=== PATIENT | male | born 1950 | race Caucasian/White ===

== ENCOUNTER → 2021-03-30 | Outpatient (CLI) | payer MEDICARE ==
[~2021-03-30] MED LIST: BENTYL 20MG TAB20 MG PO; GLUCOPHAGE1000 MG PO; GLUCOTROL5 MG PO; IBUPROFEN400 MG PO; LASIX20 MG PO; LEXAPRO20 MG PO; LOPRESSOR50 MG PO; NORCO 7.5-3251 EACH PO; NORVASC10 MG PO; PRAVACHOL40 MG PO; PROTONIX40 MG PO
== END ==
LOC: WCC 09:00
DX: I87.2 Venous insufficiency (chronic) (peripheral) (principal); L97.821 Non-pressure chronic ulcer of other part of left lower leg limited to breakdown of skin; E11.42 Type 2 diabetes mellitus with diabetic polyneuropathy; J44.9 Chronic obstructive pulmonary disease, unspecified; G47.30 Sleep apnea, unspecified; I10 Essential (primary) hypertension; I25.10 Atherosclerotic heart disease of native coronary artery without angina pectoris; L29.9 Pruritus, unspecified; M79.605 Pain in left leg; M79.604 Pain in right leg; E66.01 Morbid (severe) obesity due to excess calories
CPT/HCPCS: G0463

== ENCOUNTER → 2021-04-01 | Outpatient (CLI) | payer MEDICARE | LOC: WCC 15:30 | DX: S81.802A Unspecified open wound, left lower leg, initial encounter (principal); J44.9 Chronic obstructive pulmonary disease, unspecified; G47.30 Sleep apnea, unspecified; E11.36 Type 2 diabetes mellitus with diabetic cataract; I25.2 Old myocardial infarction; I10 Essential (primary) hypertension; Z79.84 Long term (current) use of oral hypoglycemic drugs; Z79.899 Other long term (current) drug therapy | CPT/HCPCS: G0463 ==

== ENCOUNTER → 2021-04-06 | Outpatient (CLI) | payer MEDICARE | LOC: WCC 09:30 | DX: E11.622 Type 2 diabetes mellitus with other skin ulcer (principal); I87.2 Venous insufficiency (chronic) (peripheral); L97.821 Non-pressure chronic ulcer of other part of left lower leg limited to breakdown of skin; E11.42 Type 2 diabetes mellitus with diabetic polyneuropathy; I10 Essential (primary) hypertension; I25.10 Atherosclerotic heart disease of native coronary artery without angina pectoris; J44.9 Chronic obstructive pulmonary disease, unspecified; G47.30 Sleep apnea, unspecified; L29.9 Pruritus, unspecified; M79.604 Pain in right leg; M79.605 Pain in left leg; E66.01 Morbid (severe) obesity due to excess calories; Z68.41 Body mass index [BMI] 40.0-44.9, adult; Z88.8 Allergy status to other drugs, medicaments and biological substances; Z79.84 Long term (current) use of oral hypoglycemic drugs; Z79.891 Long term (current) use of opiate analgesic; Z79.899 Other long term (current) drug therapy ==

== ENCOUNTER → 2021-04-27 | Outpatient (CLI) | payer MEDICARE | LOC: WCC 09:30 | DX: E11.622 Type 2 diabetes mellitus with other skin ulcer (principal); I87.2 Venous insufficiency (chronic) (peripheral); L97.821 Non-pressure chronic ulcer of other part of left lower leg limited to breakdown of skin; J44.9 Chronic obstructive pulmonary disease, unspecified; G47.30 Sleep apnea, unspecified; I10 Essential (primary) hypertension; I25.10 Atherosclerotic heart disease of native coronary artery without angina pectoris; E11.42 Type 2 diabetes mellitus with diabetic polyneuropathy; E66.01 Morbid (severe) obesity due to excess calories; L29.9 Pruritus, unspecified; Z68.41 Body mass index [BMI] 40.0-44.9, adult; Z88.8 Allergy status to other drugs, medicaments and biological substances; Z79.891 Long term (current) use of opiate analgesic; Z79.84 Long term (current) use of oral hypoglycemic drugs; Z79.899 Other long term (current) drug therapy | CPT/HCPCS: 97597 ==

== ENCOUNTER → 2021-05-18 | Outpatient (CLI) | payer MEDICARE | LOC: CT 05-15 09:00 | DX: I70.213 Atherosclerosis of native arteries of extremities with intermittent claudication, bilateral legs (principal); K76.0 Fatty (change of) liver, not elsewhere classified; Q44.7 Other congenital malformations of liver | CPT/HCPCS: 36415; 75635; 82565; Q9967 ==

== ENCOUNTER → 2021-05-19 | Outpatient (CLI) | payer MEDICARE | LOC: WCC 13:00 | DX: E11.622 Type 2 diabetes mellitus with other skin ulcer (principal); I87.2 Venous insufficiency (chronic) (peripheral); L97.919 Non-pressure chronic ulcer of unspecified part of right lower leg with unspecified severity; L97.821 Non-pressure chronic ulcer of other part of left lower leg limited to breakdown of skin; J44.9 Chronic obstructive pulmonary disease, unspecified; G47.30 Sleep apnea, unspecified; I10 Essential (primary) hypertension; I25.10 Atherosclerotic heart disease of native coronary artery without angina pectoris; L29.9 Pruritus, unspecified; E11.42 Type 2 diabetes mellitus with diabetic polyneuropathy; E66.01 Morbid (severe) obesity due to excess calories; Z68.41 Body mass index [BMI] 40.0-44.9, adult; Z88.8 Allergy status to other drugs, medicaments and biological substances; Z79.891 Long term (current) use of opiate analgesic; Z79.84 Long term (current) use of oral hypoglycemic drugs; Z79.899 Other long term (current) drug therapy ==

== ENCOUNTER → 2021-05-27 | Outpatient (CLI) | payer MEDICARE | LOC: WCC 14:49 | DX: I87.2 Venous insufficiency (chronic) (peripheral) (principal); E11.628 Type 2 diabetes mellitus with other skin complications; L97.821 Non-pressure chronic ulcer of other part of left lower leg limited to breakdown of skin; E11.42 Type 2 diabetes mellitus with diabetic polyneuropathy; L29.9 Pruritus, unspecified; I10 Essential (primary) hypertension; I25.10 Atherosclerotic heart disease of native coronary artery without angina pectoris; J44.9 Chronic obstructive pulmonary disease, unspecified; G47.30 Sleep apnea, unspecified; E66.01 Morbid (severe) obesity due to excess calories | CPT/HCPCS: G0463 ==

== ENCOUNTER → 2021-06-18 | Outpatient (CLI) | payer MEDICARE | LOC: WCC 13:44 | DX: E11.622 Type 2 diabetes mellitus with other skin ulcer (principal); I87.2 Venous insufficiency (chronic) (peripheral); L97.912 Non-pressure chronic ulcer of unspecified part of right lower leg with fat layer exposed; E11.42 Type 2 diabetes mellitus with diabetic polyneuropathy; J44.9 Chronic obstructive pulmonary disease, unspecified; G47.30 Sleep apnea, unspecified; I10 Essential (primary) hypertension; I25.10 Atherosclerotic heart disease of native coronary artery without angina pectoris; L29.9 Pruritus, unspecified; E66.01 Morbid (severe) obesity due to excess calories; Z68.41 Body mass index [BMI] 40.0-44.9, adult; Z88.8 Allergy status to other drugs, medicaments and biological substances; Z79.891 Long term (current) use of opiate analgesic; Z79.84 Long term (current) use of oral hypoglycemic drugs; Z79.899 Other long term (current) drug therapy | CPT/HCPCS: 97597 ==

== ENCOUNTER → 2021-06-30 | Outpatient (CLI) | payer MEDICARE | LOC: WCC 13:30 | DX: E11.621 Type 2 diabetes mellitus with foot ulcer (principal); L97.821 Non-pressure chronic ulcer of other part of left lower leg limited to breakdown of skin; I87.2 Venous insufficiency (chronic) (peripheral); G47.30 Sleep apnea, unspecified; I10 Essential (primary) hypertension; E11.42 Type 2 diabetes mellitus with diabetic polyneuropathy; I25.10 Atherosclerotic heart disease of native coronary artery without angina pectoris | CPT/HCPCS: 97597 ==

== ENCOUNTER → 2021-08-13 | Outpatient (CLI) | payer MEDICARE ==
[2021-08-13 10:50] LABS: BUN/CREATININE RATIO 24 (0-10)
== END ==
LOC: LAB 09:29
PROVIDERS: Internal Medicine Cardiovascular Disease
DX: I11.0 Hypertensive heart disease with heart failure (principal); I50.9 Heart failure, unspecified; I48.0 Paroxysmal atrial fibrillation; R00.2 Palpitations; R60.0 Localized edema; R06.02 Shortness of breath; E78.49 Other hyperlipidemia; I25.5 Ischemic cardiomyopathy
CPT/HCPCS: 36415; 80048

== ENCOUNTER 2021-09-20 21:29 | Observation (INO) | payer MEDICARE ==
[~2021-09-20] VITALS: Ht 177.8 cm; Wt 129.0 kg
[2021-09-20 22:12] LABS: HEMOGLOBIN 14.3 gm/dl (14.0-17.5); RED BLOOD COUNT 4.51 M/UL (4.20-5.50); WHITE BLOOD COUNT 10.3 K/UL (4.5-11.0)
[2021-09-21 01:10] LABS: BORDETELLA PARAPERTUSSIS Not Detected (Not Detectd); BORDETELLA PERTUSSIS Not Detected (Not Detectd); CHLAMYDIA PNEUMONIAE Not Detected (Not Detectd); CORONAVIRUS HKU1 Not Detected (Not Detectd); CORONAVIRUS NL63 Not Detected (Not Detectd); CORONAVIRUS OC43 Not Detected (Not Detectd); CORONOAVIRUS 229E Not Detected (Not Detectd); HUMAN METAPNEUMOVIRUS Not Detected (Not Detectd); HUMAN RHINOVIRUS/ENTEROVIRUS Not Detected (Not Detectd); INFLUENZA A Not Detected (Not Detectd); INFLUENZA B Not Detected (Not Detectd); MYCOPLASMA PNEUMONIAE Not Detected (Not Detectd); PARAINFLUENZA VIRUS 1 Not Detected (Not Detectd); PARAINFLUENZA VIRUS 2 Not Detected (Not Detectd); PARAINFLUENZA VIRUS 3 Not Detected (Not Detectd); PARAINFLUENZA VIRUS 4 Not Detected (Not Detectd); RESPIRATORY SYNCYTIAL VIRUS Not Detected (Not Detectd)
[2021-09-21 02:16] LABS: SARS-CoV-2 NOT DETECTED (Not Detectd)
[2021-09-22 05:53] LABS: HEMOGLOBIN 13.3 gm/dl (14.0-17.5); RED BLOOD COUNT 4.31 M/UL (4.20-5.50); WHITE BLOOD COUNT 8.6 K/UL (4.5-11.0)
[2021-09-22 06:25] LABS: BUN/CREATININE RATIO 29 (0-10)
[2021-09-22 08:14] LABS: HBSAG SCREEN Negative (Negative); HEP A AB, IGM Negative (Negative); HEP B CORE AB, IGM Negative (Negative); HEP C VIRUS AB 0.1 (0.0-0.9); HIV SCREEN 4TH GENERATION WRFX Non Reactive (Non Reactive)
[2021-09-22 09:14] LABS: RPR Non Reactive (Non Reactive)
[2021-09-23 06:51] LABS: HEMOGLOBIN 12.9 gm/dl (14.0-17.5); RED BLOOD COUNT 4.19 M/UL (4.20-5.50)
[2021-09-23 09:04] LABS: BUN/CREATININE RATIO 23 (0-10)
[2021-09-23] MEDS ORDERED: KEFLEX CAP 250250 MG PO (10:13)
[2021-09-23 23:07] LABS: CHLAMYDIA TRACHOMATIS, NAA Negative (Negative); NEISSERIA GONORRHOEAE, NAA Negative (Negative)
== END 2021-09-23 12:11 | disposition home or self-care (01) ==
LOC: ER1 21:29 → MED SURG 4 09-21 01:35 → CDU 09-21 01:35 → MED SURG 4 09-21 04:06
PROVIDERS: Emergency Medicine; Internal Medicine; Internal Medicine Infectious Disease; ADMIT Internal Medicine
DX: R50.9 Fever, unspecified (principal); I13.10 Hypertensive heart and chronic kidney disease without heart failure, with stage 1 through stage 4 chronic kidney disease, or unspecified chronic kidney disease; E11.22 Type 2 diabetes mellitus with diabetic chronic kidney disease; N18.9 Chronic kidney disease, unspecified; N17.9 Acute kidney failure, unspecified; G93.41 Metabolic encephalopathy; L03.116 Cellulitis of left lower limb; L03.115 Cellulitis of right lower limb; I35.0 Nonrheumatic aortic (valve) stenosis; I25.10 Atherosclerotic heart disease of native coronary artery without angina pectoris; E66.01 Morbid (severe) obesity due to excess calories; F41.9 Anxiety disorder, unspecified; F32.A Depression, unspecified; E78.5 Hyperlipidemia, unspecified; G89.29 Other chronic pain; R74.01 Elevation of levels of liver transaminase levels; F11.90 Opioid use, unspecified, uncomplicated; I25.2 Old myocardial infarction; K21.9 Gastro-esophageal reflux disease without esophagitis; G47.30 Sleep apnea, unspecified; Z20.822 Contact with and (suspected) exposure to COVID-19; Z68.41 Body mass index [BMI] 40.0-44.9, adult; Z99.89 Dependence on other enabling machines and devices; Z88.8 Allergy status to other drugs, medicaments and biological substances; Z79.2 Long term (current) use of antibiotics; Z79.84 Long term (current) use of oral hypoglycemic drugs; Z79.899 Other long term (current) drug therapy
CPT/HCPCS: 36415; 70450; 71045; 71250; 80048; 80053; 80061; 80074; 80076; 80202; 80307; 81001; 82140; 82550; 82553; 82570; 82607; 82728; 82746; 82962; 83036; 83605; 83615; 83735; 83874; 83880; 83930; 83935; 84100; 84156; 84300; 84439; 84443; 84484; 84550; 85025; 85610; 85652; 86140; 86592; 87040; 87086; 87389; 87633; 89050; 93005; 93970; 94660; 94760; 96365; 96366; 96367; 96368; 96372; 96375; 96376; 99285; G0378; J0133; J0290; J0696; J1100; J1650; J3370; J7030; J7050; J7070; U0002

== ENCOUNTER 2021-11-22 21:29 | Emergency (ER) | payer MEDICARE ==
[~2021-11-22 21:29] MED LIST changes: +KEFLEX CAP 250250 MG PO
[2021-11-22 22:28] LABS: HEMOGLOBIN 13.7 gm/dl (14.0-17.5); RED BLOOD COUNT 4.5 M/UL (4.20-5.50); WHITE BLOOD COUNT 5.6 K/UL (4.5-11.0)
[2021-11-22 22:50] LABS: BUN/CREATININE RATIO 19 (0-10)
== END 2021-11-23 00:23 | disposition home or self-care (01) ==
LOC: ER1 21:29
PROVIDERS: Physician Assistant Medical
DX: U07.1 COVID-19 (principal); J44.9 Chronic obstructive pulmonary disease, unspecified; E11.9 Type 2 diabetes mellitus without complications; I10 Essential (primary) hypertension; Z88.8 Allergy status to other drugs, medicaments and biological substances; Z95.2 Presence of prosthetic heart valve
CPT/HCPCS: 36415; 71045; 80053; 85025; 99283; U0002

== ENCOUNTER 2021-11-26 09:24 | Inpatient (IN) | payer MEDICARE ==
[~2021-11-26] VITALS: Ht 177.8 cm; Wt 129.4 kg
[2021-11-26 10:21] LABS: HEMOGLOBIN 13.2 gm/dl (14.0-17.5); RED BLOOD COUNT 4.36 M/UL (4.20-5.50); WHITE BLOOD COUNT 4.3 K/UL (4.5-11.0)
[2021-11-26 10:51] LABS: BUN/CREATININE RATIO 17 (0-10)
[2021-11-26] MEDS ORDERED: GLIPIZIDE5 MG PO (13:58)
[2021-11-26] MEDS ORDERED: STIOLTO RESPIMAT4 GM INH (15:07)
[2021-11-26] MEDS ORDERED: METFORMIN HCL1000 MG PO (15:07)
[2021-11-26] MEDS ORDERED: HYDROCODON-ACE1 EAC6 PO (15:08)
[2021-11-26] MEDS ORDERED: TRULICITY0.75 MG/0. SQ (15:08)
[2021-11-26] MEDS ORDERED: DOXYCYCLINE HY100 M2 PO (15:10)
[2021-11-26] MEDS ORDERED: BENTYL 20MG TAB20 MG PO (15:11)
[2021-11-26] MEDS ORDERED: HYDROXYZINE PAM25 MG PO (15:11)
[2021-11-26] MEDS ORDERED: AMLODIPINE BESY10 MG PO (15:11)
[2021-11-26] MEDS ORDERED: PROTONIX 40 MG40 M1 PO (15:12)
[2021-11-26] MEDS ORDERED: ESCITALOPRAM OX20 MG PO (15:13)
[2021-11-26] MEDS ORDERED: METOPROLOL TART50 MG PO (15:13)
[2021-11-26] MEDS ORDERED: CLOPIDOGREL75 MG PO (15:13)
[2021-11-26] MEDS ORDERED: FUROSEMIDE20 MG PO (15:14)
[2021-11-27 03:34] LABS: HEMOGLOBIN 13.9 gm/dl (14.0-17.5); RED BLOOD COUNT 4.61 M/UL (4.20-5.50)
[2021-11-27 03:49] LABS: WHITE BLOOD COUNT 3.2 K/UL (4.5-11.0)
[2021-11-27 04:36] LABS: BUN/CREATININE RATIO 19 (0-10)
[2021-11-28 06:59] LABS: HEMOGLOBIN 13.3 gm/dl (14.0-17.5); RED BLOOD COUNT 4.38 M/UL (4.20-5.50)
[2021-11-28 07:00] LABS: WHITE BLOOD COUNT 4.2 K/UL (4.5-11.0)
[2021-11-28 07:52] LABS: BUN/CREATININE RATIO 25 (0-10)
[2021-11-28] MEDS ORDERED: DECADRON6 MG PO ×2 (13:20→15:07)
[2021-11-28] MEDS ORDERED: ELIQUIS2.5 MG PO (13:20)
[2021-11-28] MEDS ORDERED: LIPITOR20 MG PO (15:07)
[2021-11-28] MEDS ORDERED: OMNICEF 300 MG300 MG PO (15:14)
== END 2021-11-28 16:27 | disposition home or self-care (01) | DRG 177 ==
LOC: ER1 09:24 → M/S 13:32 → CDU 13:32 → M/S 19:45
PROVIDERS: Emergency Medicine; Physician Assistant; Physician Assistant Medical; ADMIT Internal Medicine
PROC: 8E0ZXY6 Isolation (ICD-10-PCS; principal; 2021-11-26)
PROC: 3E0333Z Introduction of Anti-inflammatory into Peripheral Vein, Percutaneous Approach (ICD-10-PCS; 2021-11-26)
PROC: XW033E5 Introduction of Remdesivir Anti-infective into Peripheral Vein, Percutaneous Approach, New Technology Group 5 (ICD-10-PCS; 2021-11-26)
PROC: B24BZZZ Ultrasonography of Heart with Aorta (ICD-10-PCS; 2021-11-27)
DX: U07.1 COVID-19 (principal); J12.82 Pneumonia due to coronavirus disease 2019; G93.41 Metabolic encephalopathy; J44.0 Chronic obstructive pulmonary disease with (acute) lower respiratory infection; F11.20 Opioid dependence, uncomplicated; Z68.41 Body mass index [BMI] 40.0-44.9, adult; I45.2 Bifascicular block; W01.0XXA Fall on same level from slipping, tripping and stumbling without subsequent striking against object, initial encounter; I35.0 Nonrheumatic aortic (valve) stenosis; F32.A Depression, unspecified; G89.29 Other chronic pain; E78.5 Hyperlipidemia, unspecified; I25.10 Atherosclerotic heart disease of native coronary artery without angina pectoris; E03.9 Hypothyroidism, unspecified; E66.01 Morbid (severe) obesity due to excess calories; D69.6 Thrombocytopenia, unspecified; F41.1 Generalized anxiety disorder; D72.819 Decreased white blood cell count, unspecified; E11.9 Type 2 diabetes mellitus without complications; S01.81XA Laceration without foreign body of other part of head, initial encounter; I10 Essential (primary) hypertension; R16.1 Splenomegaly, not elsewhere classified; R09.02 Hypoxemia; Z95.1 Presence of aortocoronary bypass graft; Z88.8 Allergy status to other drugs, medicaments and biological substances; Z79.82 Long term (current) use of aspirin; Z79.899 Other long term (current) drug therapy; Z87.891 Personal history of nicotine dependence; Z82.49 Family history of ischemic heart disease and other diseases of the circulatory system; Z79.1 Long term (current) use of non-steroidal anti-inflammatories (NSAID); Z79.84 Long term (current) use of oral hypoglycemic drugs
CPT/HCPCS: ECHO; 36415; 36600; 70450; 70551; 71045; 72125; 72170; 73080; 80048; 80053; 80307; 81001; 82140; 82550; 82553; 82803; 82962; 83605; 83735; 83874; 84484; 85025; 85027; 85610; 85730; 87040; 93005; 93306; 93880; 94640; 94664; 94760; 96374; 99285; G0480; J1100; J1650; J2310; J2543; J7030; Q9967; U0002

== ENCOUNTER → 2021-11-30 | Outpatient (CLI) | payer MEDICARE ==
[~2021-11-30] MED LIST changes: +AMLODIPINE BESY10 MG PO; +CLOPIDOGREL75 MG PO; +DECADRON6 MG PO; +DOXYCYCLINE HY100 M2 PO; +ELIQUIS2.5 MG PO; +ESCITALOPRAM OX20 MG PO; +FUROSEMIDE20 MG PO; +GLIPIZIDE5 MG PO; +HYDROCODON-ACE1 EAC6 PO; +HYDROXYZINE PAM25 MG PO; +LIPITOR20 MG PO; +METFORMIN HCL1000 MG PO; +METOPROLOL TART50 MG PO; +OMNICEF 300 MG300 MG PO; +PROTONIX 40 MG40 M1 PO; +STIOLTO RESPIMAT4 GM INH; +TRULICITY0.75 MG/0. SQ
== END ==
LOC: RAD 13:48
DX: U07.1 COVID-19 (principal)
CPT/HCPCS: 71046

== ENCOUNTER → 2021-11-30 | Outpatient (CLI) | payer MEDICARE | LOC: WCC 12:02 | DX: S09.8XXD Other specified injuries of head, subsequent encounter (principal); E11.622 Type 2 diabetes mellitus with other skin ulcer; E66.01 Morbid (severe) obesity due to excess calories; R55 Syncope and collapse; J44.9 Chronic obstructive pulmonary disease, unspecified; I10 Essential (primary) hypertension; I25.10 Atherosclerotic heart disease of native coronary artery without angina pectoris; I87.2 Venous insufficiency (chronic) (peripheral); E11.36 Type 2 diabetes mellitus with diabetic cataract; H26.9 Unspecified cataract; J45.909 Unspecified asthma, uncomplicated; I25.2 Old myocardial infarction; Z86.16 Personal history of COVID-19; Z88.8 Allergy status to other drugs, medicaments and biological substances; W22.8XXD Striking against or struck by other objects, subsequent encounter; W19.XXXD Unspecified fall, subsequent encounter ==

== ENCOUNTER 2022-03-20 01:47 | Emergency (ER) | payer MEDICARE ==
[2022-03-20 02:26] LABS: HEMOGLOBIN 12.6 gm/dl (14.0-17.5); RED BLOOD COUNT 4.12 M/UL (4.20-5.50); WHITE BLOOD COUNT 7.5 K/UL (4.5-11.0)
== END 2022-03-20 03:25 ==
LOC: ER1 01:47
PROVIDERS: Family Medicine
DX: R00.1 Bradycardia, unspecified (principal); Z95.4 Presence of other heart-valve replacement
CPT/HCPCS: 71045; 80053; 82550; 82553; 84484; 85025; 93005; 96374; 99285; J2310